=== PATIENT | male | born 1975 | race Two or more races ===

== ENCOUNTER 2019-01-20 14:01 | Emergency (ER) | payer MEDICAID, OTHER ==
[2019-01-20 14:01] VITALS: BP 0/0
[2019-01-20] MEDS ORDERED: EPINEPHrine HCL 1 MG/10 ML SYRG IV ONE (14:07)
[2019-01-20] MEDS ORDERED: ATROPINE SULF 1 MG/10ml SYR IV ONE (14:07)
[2019-01-20] MEDS ORDERED: SODIUM BICARBONATE 8.4% INJ 50ML SYRINGE IV ONE (14:07)
[2019-01-20] MEDS ORDERED: CALCIUM CHLOR(10%) 100MG/ML 10ML SYRINGE IV ONE (14:07)
== END 2019-01-20 23:50 | disposition expired ==
LOC: ER 14:06
DX: I46.9 Cardiac arrest, cause unspecified (principal); E11.22 Type 2 diabetes mellitus with diabetic chronic kidney disease; N18.5 Chronic kidney disease, stage 5
CPT/HCPCS: 31500; 92950; 99285; J0171